=== PATIENT | male | born 1950 | race Caucasian/White ===

== ENCOUNTER 2023-01-23 09:13 | Outpatient (AMB) | payer BC, SELFPAY ==
[2023-01-23 09:15] VITALS: BP 124/82; PULSE 85; O2SAT 99; BMI 29.5
--- NOTE | 2023-01-23 09:15 | A.OFFPC_ITS ---
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 Patient of DODIE Shen. medical history significant for hypercholesterolemia and insomnia. Patient reports that about 6 months ago he was at [facility] was diagnosed with AFib-he reports he is on Eliquis, he will call with his medication list. Patient is followed by [facility] cardiology-will request medical records. In addition, patient reports intermittent constipation, last bowel movement yesterday. Colonoscopy 2014 which was done by Dr. Kendall - polyps - normal. Patient will call for an eye exam. Patient like to hold off on pneumonia and tetanus vaccines. 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 No chest pain. [facility] Medical History (Updated 01/23/23 @ 09:48 by KENNETH Valladares) Hypercholesterolemia Surgical History (Updated 01/23/23 @ 10:01 by KENNETH Valladares) History of colonoscopy History of exploratory laparotomy Family History Father No problems noted. Mother No problems noted. Brother No problems noted. Sister No problems noted. Sister No problems noted. Sister No problems noted. Sister No problems noted. Son No problems noted. Son No problems noted. Son No problems noted. Daughter No problems noted. Daughter No problems noted. Daughter No problems noted. Daughter No problems noted. Social History Patient Tobacco Use Status: Never used Tobacco service: No Cognitive needs: No Hearing needs: No Vision needs: No Questionnaire PHQ-9 Over the last 2 weeks, how often have you been bothered by any of the following problems? 1. Little interest or pleasure in doing things: not at all 2. Feeling down, depressed, or hopeless: not at all 3. Trouble falling or staying asleep, or sleeping too much: nearly every day (no sleep ) 4. Feeling tired or having little energy: not at all 5. Poor appetite or overeating: not at all 6. Feeling bad about yourself - or that you are a failure or have let yourself or your family down: not at all 7. Trouble concentrating on things, such as reading the newspaper or watching television: not at all 8. Moving or speaking so slowly that other people could have noticed. Or the opposite - being so fidgety or restless that you have been moving around a lot more than usual: not at all 9. Thoughts that you would be better off or of hurting yourself in some way: not at all Total score: 3 Depression Screening Interpretation: Negative 17856 - PHQ-9 Billing: Yes Source: Developed by Drs. Gabino Aranda, Elvia Rasmussen, Sujit Rosenberg and colleagues, with an educational luis manuel from [employer]. Thrive Questionnaire Date Thrive assessed: 01/23/23 I am a: Patient What is your living situation today?: I have a steady place to live Within the past 12 months, did the food you bought not last and you didn't have the money to get more?: Never true Within the past 12 months, did you worry whether your food would run out before you got money to buy more?: Never true Currently or been in a relationship where the following occur: no concerns reported AUDIT C Alcohol Use Questionnaire (AUDIT-C) 1. How often do you have a drink containing alcohol?: Never 3. How often do you have six or more drinks on one occasion?: Never Total Score: 0 Score Reviewed/Action Taken: No TANNER-7 AMB Questionnaire TANNER-7 Date TANNER - 7 assessed: 01/23/23 Feeling nervous, anxious, or on edge: 0 = Not at all Not being able to stop or control worryin = Not at all Worrying too much about different things: 0 = Not at all Trouble relaxin = Not at all Being so restless that it is hard to sit still: 0 = Not at all Becoming easily annoyed or irritable: 0 = Not at all Feeling afraid as if something awful might happen: 0 = Not at all Total TANNER-7 score (0-4 normal; 5-9 mild; 10-14 moderate; 15-21 severe): 0 Source: Developed by Drs. Gabino Aranda, Elvia Rasmussen, Sujit Rosenberg and colleagues, with an educational luis manuel from [employer]. TANNER-7 Assessment Billing TANNER-7 Assessment Tool: TANNER-7 Assessment 45942 Review of Systems Const Denies body aches, Denies chills, Denies fever(s) and Denies headache(s) Eyes Denies change in vision ENT Denies dizziness, Denies otalgia, Denies headache(s), Denies nasal discharge, Denies sinus pain and Denies sore throat Card Denies chest pain, Denies edema, Denies lightheadedness, Denies dyspnea and Reports dyspnea on exertion Resp Denies cough, Denies dyspnea, Reports dyspnea on exertion and Denies wheezing GI Denies abdominal pain, Reports constipation (Intermittent), Denies diarrhea, Denies nausea and Denies vomiting Denies dysuria Musc Denies myalgias Skin/Breast Denies rash Neuro Denies dizziness and Denies headache(s) Aller/Immun Denies wheezing Physical exam (Primary Care) Vital Signs: Last Vital Signs Pulse 85 01/23/23 09:15 BP 124/82 01/23/23 09:15 Pulse Ox 99 01/23/23 09:15 Oxygen Delivery Method Room Air 01/23/23 09:15 BMI result Body Mass Index 29.5 Tobacco/Smoking Status: Tobacco use Status Tobacco use date assessed 01/23/23 01/23/23 09:20 Patient Tobacco Use Status Never used Tobacco 01/23/23 09:20 PHQ-9: PHQ-9 Score PHQ-9: Total score 3 01/23/23 09:24 Depression Screening Interpretation: Negative Thrive Assessment: Date of Thrive Assessment Date Thrive assessed 01/23/23 01/23/23 09:24 Currently or been in a relationship where the following occur: no concerns reported Const General: cooperative and no acute distress Orientation/consciousness: patient oriented x3 HENMT Head: Yes normocephalic and Yes atraumatic Ears: TM's normal bilaterally Face and sinus: Yes sinuses nontender Mouth: oropharynx normal and moist mucous membranes Throat: Yes posterior oropharynx normal Eyes General: appearance normal, both eyes and all related structures Pupils: Equal, round and reactive pupils present EOM: EOMs intact bilaterally Neck Neck: Yes normal visual inspection, Yes full ROM and Yes no lymphadenopathy Thyroid: Thyroid normal Resp Effort & Inspection: normal respiratory effort and able to speak in complete sentences Auscultation: clear to auscultation bilaterally, no crackles, no rales, no rhonchi and no wheezes Cardio Rate: regular rate Rhythm: abnormal rhythm regularly irregular Heart sounds: S1 normal heart sound present, S2 normal heart sound present and no murmurs GI Palpation (GI): Soft to palpation, not firm, nontender, no guarding, not rigid and no hepatosplenomegaly Auscultation: normal bowel sounds General: No CVA tenderness Back/Spine/Pelvis Back: No CVA tenderness Skin General skin exam: no rashes or lesions noted Neuro General: patient oriented x3 Cranial nerves: Yes Equal, round and reactive pupils present Gait exam (Neuro): Normal gait present Extrem General: Yes full ROM and No edema Assessment and Plan Assessment & Plan (1) Constipation: Code(s): K59.00 - Constipation, unspecified Plan: Increase dietary fiber and fluid consumption Start Colace 100 mg daily p.r.n. (2) Afib: Code(s): I48.91 - Unspecified atrial fibrillation Plan: Patient reports that he is on Eliquis-he will call with his medication list Followed by [facility] cardiology-will request records (3) Insomnia: Code(s): G47.00 - Insomnia, unspecified Qualifiers: Insomnia type: primary Qualified Code(s): F51.01 - Primary insomnia Plan: Patient works 3rd shift Start hydroxyzine 10 mg for sleep-educated about drowsiness (4) Screening for hypothyroidism: Code(s): Z13.29 - Encounter for screening for other suspected endocrine disorder (5) Screening PSA (prostate specific antigen): Code(s): Z12.5 - Encounter for screening for malignant neoplasm of prostate (6) Screening for diabetes mellitus (DM): Code(s): Z13.1 - Encounter for screening for diabetes mellitus (7) Annual physical exam: Code(s): Z00.00 - Encounter for general adult medical examination without abnormal findings Plan: Repeat in 1 year (8) Hypercholesterolemia: Code(s): E78.00 - Pure hypercholesterolemia, unspecified Plan: Will check lipid panel Orders: Orders Vitamin B12 and Folate Today Z00.00 - Encounter for general adult medical examination without abnormal findings Comprehensive Antimony. Panel Fast Today Z13.1 - Encounter for screening for diabetes mellitus Lipid Panel Today E78.00 - Pure hypercholesterolemia, unspecified Prostate Specific Antigen Today Z12.5 - Encounter for screening for malignant neoplasm of prostate TSH reflex Free T4 Today Z13.29 - Encounter for screening for other suspected endocrine disorder Vitamin D 25-OH Total Today Z00.00 - Encounter for general adult medical examination without abnormal findings Complete Blood Count Auto Diff Today Z00.00 - Encounter for general adult medical examination without abnormal findings Medications: New docusate sodium (Colace) 100 mg PO DAILY PRN 30 caps 0RF constipation K59.00 - Constipation, unspecified hydroxyzine HCl 10 mg PO BEDTIME PRN 14 tabs 0RF insomnia G47.00 - Insomnia, unspecified Coding Level of Care Code Est Pt Prev Care >65y(78505) Diagnoses Constipation K59.00 Afib I48.91 Insomnia F51.01 Insomnia type: primary Screening for hypothyroidism Z13.29 Screening PSA (prostate specific antigen) Z12.5 Screening for diabetes mellitus (DM) Z13.1 Annual physical exam Z00.00 Hypercholesterolemia E78.00 Additional Codes TANNER-7 Assessment Billing - TANNER-7 Assessment Tool: TANNER-7 Assessment 56492 ([id number])
== END 2023-01-23 10:02 | disposition home or self-care (01) ==
PROVIDERS: PCP Physician Assistant; Visit Provider Nurse Practitioner Family
DX: Z00.00 Encounter for general adult medical examination without abnormal findings (principal); I48.91 Unspecified atrial fibrillation; K59.00 Constipation, unspecified; F51.01 Primary insomnia; E78.00 Pure hypercholesterolemia, unspecified
CPT/HCPCS: 99397

== ENCOUNTER 2024-05-31 20:52 | Emergency (ER) | payer OTHER, SELFPAY ==
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
[2024-05-31 20:55] VITALS: BP 155/94; PULSE 88; RESP 16; TEMP 36.6; O2SAT 97; BMI 29.9
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
[2024-06-01 00:02] VITALS: BP 155/100; PULSE 84; RESP 20; TEMP 37; O2SAT 95
[2024-06-01 01:00] VITALS: BP 155/100; PULSE 84; RESP 20; TEMP 37; O2SAT 95
== END 2024-06-01 01:02 | disposition home or self-care (01) ==
PROVIDERS: Emergency Provider Emergency Medicine; PCP Physician Assistant
DX: M54.2 Cervicalgia (principal); R51.9 Headache, unspecified; I48.91 Unspecified atrial fibrillation; Z79.01 Long term (current) use of anticoagulants; Z79.899 Other long term (current) drug therapy
CPT/HCPCS: 70450; 72125; 99284

== ENCOUNTER → 2024-05-31 20:57 | Outpatient (BNV) | payer BC, SELFPAY | PROVIDERS: Emergency Provider Emergency Medicine; PCP Physician Assistant; Visit Provider Radiology Diagnostic Radiology | DX: M54.2 Cervicalgia (principal); R51.9 Headache, unspecified | CPT/HCPCS: 70450; 72125 ==